=== PATIENT | female | born 1985 | race Two or more races ===

== ENCOUNTER 2024-04-19 21:07 | Emergency (ER) | payer MEDICAID, SELFPAY ==
[2024-04-19 21:09] VITALS: BMI 32.0
[2024-04-19 21:24] VITALS: BP 157/90; PULSE 83; RESP 18; TEMP 36.7; O2SAT 99
--- NOTE | 2024-04-19 21:39 | XR_ITS ---
Examination: Transvaginal ultrasound of the pelvis, complete Technique: Transvaginal sonographic images pelvis performed using rodriguez scale imaging Exam date and time: April 19, 2024 1038 hrs. Indications: Irregular heavy menses beginning one month ago Findings: Uterus 8.6 x 4.6 x 5.1 cm retroverted No uterine mass or intrauterine gestation Endometrial stripe 0.7 cm Right ovary 3.1 x 2.1 x 2.1 cm arterial flow small follicles Mild free fluid adjacent to the right ovary Left ovary obscured by bowel gas Impression: Mild free fluid adjacent to the right ovary, consider recent rupture of an ovarian cyst, pelvic inflammatory disease, clinical correlation advised.
[2024-04-19 22:08] LABS: Collection Type, Urine Clean Catch; WBC,Urine 0 /hpf (0-5)
[2024-04-19 22:18] LABS: Basophils # (Auto) 0.1 Thou/mm3 (0.0-0.2); Basophils % (Auto) 1 % (0-2.5); Eosinophils # (Auto) 0.1 Thou/mm3 (0.0-0.5); Eosinophils % (Auto) 1 % (0-10); Hematocrit 30.2 % (36.0-46.0); Hemoglobin 9.9 g/dL (12.0-16.0); Immature Granulocytes % (Auto) 0 % (0-0); Immature Granulocytes Auto 0.04 Thou/mm3 (0.00-0.00); Lymphocytes % (Auto) 25 % (10-50); Mean Corpuscular HGB Conc 32.8 g/dl (31.0-37.0); Mean Corpuscular Hemoglobin 26.5 pg (25.0-35.0); Mean Corpuscular Volume 81 fL (80-100); Monocytes # (Auto) 0.6 Thou/mm3 (0.0-0.8); Monocytes % (Auto) 5 % (0-12); Neutrophils % (Auto) 68 % (37-80); Nucleated Red Blood Cell % 0 /100 WBC (0); Platelet Count 363 Thou/mm3 (140-440); Red Blood Count 3.73 Miln/mm3 (4.00-5.20); White Blood Count 11.9 Thou/mm3 (3.6-11.0)
[2024-04-19 22:24] LABS: HCG Qualitative,Urine Negative
[2024-04-19 22:31] LABS: INR 0.9 (0.9-1.3); Partial Thromboplastin Time 23.3 Seconds (22.0-36.0); Prothrombin Time 10.3 Seconds (9.0-12.2)
[2024-04-19 22:32] LABS: Bilirubin,Urine Negative (Negative); Blood,Urine 3+ (Negative); Clarity,Urine Turbid (Clear/Hazy); Color,Urine Dark-Brown (Lt Yel-Yel); Glucose, Urine Negative (Negative); Ketones,Urine Negative (Negative); Leukocyte Esterase,Urine Positive (Negative); Nitrite,Urine Negative (Negative); Protein,Urine 2+ (Neg - Trace); RBC,Urine 6954 /hpf (0-3); Specific Gravity,Urine 1.033 (1.001-1.035); Squamous Epithelial Cell,Urine 3 /hpf (0-5); Urobilinogen,Urine Negative mg/dL (0.0-1.0)
[2024-04-19 22:45] LABS: Alanine Aminotransferase 18 U/L (10-49); Albumin, Serum 4.8 gm/dL (3.5-5.0); Albumin/Globulin Ratio 1.7 (1.2-2.2); Alkaline Phosphatase 54 U/L (46-116); Anion Gap 8 (7-16); Aspartate Amino Transferase 23 U/L (0-34); BUN/Creatinine Ratio 26 Ratio (12-20); Bilirubin,Total 0.3 mg/dL (0.3-1.2); Blood Urea Nitrogen 18 mg/dL (9-23); Calcium 9.4 mg/dL (8.3-10.6); Calcium (Corrected) 9.4 mg/dL (8.5-10.1); Carbon Dioxide 25.7 mMol/L (20.0-31.0); Chloride 106 mMol/L (98-107); Creatinine (Component) 0.7 mg/dL (0.6-1.3); Estimated Creatinine Clearance 106.3 mL/min (>60); Globulin 2.9 gm/dL (2.3-3.5); Glucose 99 mg/dL (74-106); Osmolality,Calculated 281 (275-295); Potassium 3.6 mMol/L (3.4-5.1); Sodium 140 mMol/L (136-145); Total Protein 7.7 gm/dL (5.7-8.2); eGFR > 60 See Note
[2024-04-19 22:53] LABS: Amphetamine/Methamp Scrn,U Negative (Negative); Barbiturate Screen,Urine Negative (Negative); Benzodiazepines Screen,Urine Negative (Negative); Benzoylecgonine Screen, Ur Negative (Negative); Fentanyl Screen,Urine Negative (Negative); Opiate Screen,Urine Negative (Negative); THC Screen,Urine Negative (Negative)
--- NOTE | 2024-04-19 23:44 | EDNOTE_ITS ---
ED OB Contraction Preg RMI/HPI General Chief complaint: Vaginal Bleeding Stated complaint: LOWER ABD CRAMPING, VAGINAL BLEEDING X1MON Time Seen by Provider: 04/19/24 21:38 Arrival date/time: 04/19/24 21:07 38F with no significant PMH presents to ED with longer than usual periods for the past few months. Patient denies dysuria and vaginal discharge. Limitations: no limitations Related Data Previous Rx's ?Medication ?Instructions ?Recorded Sulfamethoxazole/Trimethoprim DS * 1 tab PO BID Infection #14 tabs 03/26/17 (BACTRIM DS *) ibuprofen 600 mg tablet 1 tab PO Q8HR PRN pain #30 tabs 03/26/17 ibuprofen 600 mg tablet 600 mg PO Q6H #30 tabs 05/10/23 diphenhydramine HCl 25 mg capsule 25 mg PO TID #20 caps 08/23/23 cyclobenzaprine 5 mg tablet 5 mg PO Q8H #14 tabs 10/17/23 ibuprofen 800 mg tablet (IBU) 800 mg PO Q8H #20 tabs 10/17/23 Allergies Allergy/AdvReac Type Severity Reaction Status Date / Time NKA* Allergy Uncoded 04/19/24 21:11 Review of Systems Review of Systems Systems Reviewed: All systems reviewed, normal except as documented Constitutional Constitutional: Reports system reviewed and no additional complaints, except as documented, Denies fever(s) and Denies headache(s) ENT Ears, Nose, Mouth, and Throat: Denies disequilibrium and Denies headache(s) Cardiovascular Cardiovascular: Reports system reviewed and no additional complaints, except as documented, Denies chest pain and Denies dyspnea Respiratory Respiratory: Reports system reviewed and no additional complaints, except as documented, Denies cough and Denies dyspnea Gastrointestinal Gastrointestinal: Reports system reviewed and no additional complaints, except as documented, Denies abdominal pain, Denies nausea and Denies vomiting Genitourinary Genitourinary: Reports as per HPI, Reports abnormal menses and Reports abnormal vaginal bleeding Neurologic Neurologic: Reports system reviewed and no additional complaints, except as documented, Denies confusion, Denies disequilibrium and Denies headache(s) Psychiatric Psychiatric: Denies confusion Past Medical History Social History SMOKING STATUS: Never smoker ED Exam General Limitations: Present no limitations General appearance: Present alert and in no apparent distress Head Head exam: Present atraumatic Eye Eye exam: Present normal appearance, PERRL and EOMI ENT ENT exam: Present normal exam, normal oropharynx and mucous membranes moist Neck Neck exam: Present normal inspection, full ROM and trachea midline Chest Chest inspection: Present normal inspection and symmetric chest wall rise Respiratory Respiratory exam: Present normal lung sounds bilaterally Cardiovascular Cardiovascular exam: Present regular rate, normal rhythm and normal heart sounds Abdominal Exam Abdominal exam: Present soft and normal bowel sounds Extremities Exam Extremities exam: Present normal inspection and full ROM Back Exam Back exam: Present normal inspection and full ROM Neurological Exam Neurological exam: Present alert, oriented X3 and CN II-XII intact Psychiatric Psychiatric exam: Present normal affect and normal mood Skin Skin exam: Present warm, dry, intact and normal color Course Quality Measures none Orders Category Date Time Status US transvaginal Stat Exams 04/19/24 21:39 Completed CBC Stat Lab 04/19/24 21:56 Completed CMP [Comprehensive Metabolic Panel] Stat Lab 04/19/24 21:56 Completed Drug Screen,Urine Stat Lab 04/19/24 21:55 Completed HCG Qualitative,Urine Stat Lab 04/19/24 21:55 Completed INR [Prothrombin Time with INR] Stat Lab 04/19/24 21:56 Completed PTT [Partial Thromboplastin Time] Stat Lab 04/19/24 21:56 Completed UA [Urinalysis] Stat Lab 04/19/24 21:55 Completed Vital Signs Vital signs: Vital Signs Temperature 98.1 F 04/19/24 21:24 Pulse Rate 83 04/19/24 21:24 Respiratory Rate 18 04/19/24 21:24 Blood Pressure 157/90 H 04/19/24 21:24 Pulse Oximetry (%) 99 04/19/24 21:24 Oxygen Delivery Method Room Air 04/19/24 21:24 O2 at 99% on RA and WNLs Vaginal Bleeding MDM Narrative MDM Narrative: 38F with no significant PMH presents to ED with longer than usual periods for the past few months. Patient denies dysuria and vaginal discharge. Physical exam reveals no pelvic/ab tenderness. Patient is afebrile, calm, and alert. US reveals some free fluid, likely blood. Moderate anemia with Hgb of 10. CMP unremarkable. UA only blood. HCG neg. Skills Trainer given. Patient data External records reviewed:: [facility] previous records Clinical information provided by:: patient Social determinants that could affect healthcare access:: none Patient has the following chronic illnesses:: none How is presenting disease/condition affected by chronic disease/condition?: no chronic disease Evaluation data The following diagnostics were reviewed and interpreted by me:: lab results and radiology exam(s) Lab and/or radiology exams considered but not ordered:: ordered Interpretation Summary: above Medications / Prescriptions Medications or Prescriptions considered but not ordered:: not ordered Medication administrations:: n/a Consultations Consultation(s) initiated? (list below): No Diagnosis Vaginal Bleeding Differential Diagnosis: missed , threatened , dysfunctional uterine bleeding, menometrorrhagia, incomplete , ectopic without intrauterine and vaginal bleeding Most likely diagnosis given after review of the tests above:: vaginal bleeding Admission Indicated Admission indicated?: not indicated Admission Request Was there a request for admission?: No Disposition Plan Disposition Plan: Discharge Discharge Attestation Discharge Attestation: The patient and all family members were given an opportunity to ask questions and understood the discharge instructions. Discharge instructions specifically effects, indications for sooner follow up or return to the emergency department, and the expected course of current diagnosis. Patient condition: Stable Discharge Plan Plan Patient Disposition: HOME (Self Care) Disposition Comment: Stable Prescriptions/Referrals Prescriptions/Med Rec: No Action ibuprofen 600 MG tablet 1 tab PO Q8HR PRN (Reason: pain) Qty: 30 0RF Sulfamethoxazole/Trimethoprim DS * (BACTRIM DS *) 1 TAB tablet 1 tab PO BID Qty: 14 0RF ibuprofen 600 mg tablet 600 mg PO Q6H Qty: 30 0RF ibuprofen [IBU] 800 mg tablet 800 mg PO Q8H Qty: 20 0RF cyclobenzaprine 5 mg tablet 5 mg PO Q8H Qty: 14 0RF diphenhydramine HCl 25 mg capsule 25 mg PO TID Qty: 20 0RF Referrals: Suzette Paez GREENKEEPER [Primary Care Provider] - In 1 week Problem List Clinical Impression: Vaginal bleeding Patient/Caregiver Discharge Instructions Education Materials: Understanding Uterine Bleeding Additional Instructions: Please follow-up with PCP/OBYGN within 24-48 hours and return immediately if symptoms worsen. Print Language: Urdu Stand Alone Forms: Patient Portal Info Letter PA/HEALTH EDUCATION TEACHER Supervising Physician PA/HEALTH EDUCATION TEACHER Supervising Physician: Dr. Mancuso
== END 2024-04-19 23:59 | disposition home or self-care (01) ==
PROVIDERS: Physician Assistant; Emergency Provider Emergency Medicine; PCP Nurse Practitioner Family
DX: N93.9 Abnormal uterine and vaginal bleeding, unspecified (principal); D64.9 Anemia, unspecified
CPT/HCPCS: 36415; 76830; 80053; 80307; 81001; 81025; 85025; 85610; 85730; 99284